=== PATIENT | male | born 1995 | race Caucasian/White ===

== ENCOUNTER 2017-08-26 08:01 | Emergency (ER) | payer OTHER ==
--- NOTE | 2017-08-26 08:23 | ER ---
Nurse's Notes [facility] Name: Owen Mccartney III Age: 21 yrs Sex: Male : 1995 Arrival Date: 08/26/2017 Time: 08:06 Bed 20 Private MD: Vel Ying M Diagnosis: Insect bite (nonvenomous) of left wrist;Cellulitis of left upper limb Presentation: 08/26 08:09 Presenting complaint: Patient states: yesterday, was doing yard work, and i felt might hj be a wasp has bitten me on my L hand, it is getting worse, took ibuprofen, last dose last night around 1030; reports numbness and tingling on the affected side; reports itchiness;. Transition of care: patient was not received from another setting of care. Onset of symptoms was August 26, 2017. Risk Assessment: Do you want to hurt yourself or someone else? Patient reports no desire to harm self or others. Initial Sepsis Screen: Does the patient meet any 2 criteria? Yes Does the patient have a suspected source of infection? Yes: Skin breakdown/wound. Care prior to arrival: None. 08:09 Method Of Arrival: Ambulatory 08:09 Acuity: ELIZABETH 4 hj Triage Assessment: 08:12 Bite description: bite sustained to left hand by a wasp, animal information: vaccination(s) is not applicable. General: Appears in no apparent distress. uncomfortable, Behavior is calm, cooperative, appropriate for age. Pain: Complains of pain in left hand Pain currently is 2 out of 10 on a pain scale. Historical: - Allergies: 08:11 No Known Allergies; hj - Home Meds: 08:11 None [Active]; hj - PMHx: 08:11 None; hj - PSHx: 08:11 None; hj - Immunization history:: Adult Immunizations not up to date. - Social history:: Smoking status: Patient uses tobacco products, smokes one-half pack cigarettes per day, Patient uses alcohol, occasionally. - Ebola Screening: : Patient negative for fever greater than or equal to 101.5 degrees Fahrenheit, and additional compatible Ebola Virus Disease symptoms Patient denies exposure to infectious person Patient denies travel to an Ebola-affected area in the 21 days before illness onset. Screenin:13 Abuse screen: Denies threats or abuse. Denies injuries from another. Nutritional hj screening: No deficits noted. Tuberculosis screening: No symptoms or risk factors identified. Fall Risk None identified. Assessment: 08:13 Derm: Skin is intact, Skin is red. hj 08:25 General: Appears comfortable, Behavior is calm, cooperative. Pain: Complains of pain in aa5 left hand Pain does not radiate. Pain currently is 2 out of 10 on a pain scale. Quality of pain is described as pinching, Is continuous. Neuro: Level of Consciousness is awake, alert, obeys commands, Oriented to person, place, time, situation. Cardiovascular: No deficits noted. Respiratory: Airway is patent Respiratory effort is even, unlabored, Respiratory pattern is regular, symmetrical. GI: No signs and/or symptoms were reported involving the gastrointestinal system. : No signs and/or symptoms were reported regarding the genitourinary system. EENT: No signs and/or symptoms were reported regarding the EENT system. Derm: Skin is dry, Skin is red, Skin temperature is warm. Musculoskeletal: Range of motion: intact in all extremities, Swelling present in left hand. 08:35 Reassessment: pt states" i have a little bit of trouble swallowing pills but I will tw2 try", Zofran given first and a few crackers and water. Vital Signs: 08:13 BP 125 / 83; Pulse 63; Resp 18; Temp 97.6(O); Pulse Ox 100% on R/A; Weight 95.25 kg; hj Height 5 ft. 9 in. (175.26 cm); Pain 2/10; 08:13 Body Mass Index 31.01 (95.25 kg, 175.26 cm) ED Course: 08:06 Patient arrived in ED. rg4 08:06 Vel Ying MD is Private Physician. rg4 08:11 Triage completed. hj 08:12 Kathy Chaidez FNP-C [facility]. snw 08:12 Dav Chandler MD is Attending Physician. snw 08:13 Arm band placed on right wrist. hj 08:13 Patient has correct armband on for positive identification. Bed in low position. Call light in reach. Side rails up X 1. 08:17 Jessica Shoemaker, HANK is Primary Nurse. aa5 08:55 No provider procedures requiring assistance completed. aa5 08:55 Patient did not have IV access during this emergency room visit. 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 Exp: tw10/30/2019. Lot #: [id number]. } Route: IM; Site: left deltoid; 08:55 Follow up: Response: No adverse reaction aa5 08:34 Drug: Zofran 4 mg Route: PO; 08:55 Follow up: Response: No adverse reaction aa5 08:40 Drug: Doxycycline 100 mg Route: PO; aa5 08:55 Follow up: Response: No adverse reaction aa5 08:40 Drug: predniSONE 20 mg Route: PO; aa5 08:55 Follow up: Response: No adverse reaction aa5 08:40 Drug: ZyrTEC - Cetirizine 10 mg Route: PO; aa5 08:55 Follow up: Response: No adverse reaction aa5 08:40 Drug: Pepcid 20 mg Route: PO; aa5 08:55 Follow up: Response: No adverse reaction aa5 Outcome: 08:23 Discharge ordered by MD. jamil 08:55 Discharged to home ambulatory. aa5 08:55 Condition: stable 08:55 Discharge instructions given to patient, Instructed on discharge instructions, follow up and referral plans. medication usage, Demonstrated understanding of instructions, follow-up care, medications. 08:57 Patient left the ED. aa5 Signatures: Kathy Chaidez, DEMOLITION CRANE OPERATOR-C DEMOLITION CRANE OPERATOR-Csnw Jessica Shoemaker RN RN aa5 Raymundo Stanley RN RN Radha Otero RN RN 2 Brenna Carrillo 4 Corrections: (The following items were deleted from the chart) 08:15 08:13 Pulse 63bpm; Resp 18bpm; Pulse Ox 100% RA; Temp 97.6F Oral; 95.25 kg; Height 5 hj ft. 9 in.; BMI: 31.0; Pain 2/10; hj 09:15 09:04 Patient left the ED. aa5 aa5
--- NOTE | 2017-08-26 08:23 | EDPHYS ---
Physician Documentation [facility] Name: Owen Mccartney III Age: 21 yrs Sex: Male : 1995 Arrival Date: 08/26/2017 Time: 08:06 Bed 20 Private MD: Vel Ying M ED Physician Dav Chandler HPI: 08/26 08:49 This 21 yrs old Male presents to ER via Ambulatory with complaints of Insect snw Bite. 08:49 The patient or guardian reports pain, swelling, tenderness. The complaints affect the snw left wrist diffusely. Context: The problem was sustained outdoors, resulted from insect sting. Onset: The symptoms/episode began/occurred suddenly, 1 day(s) ago, and became persistent. Associated signs and symptoms: The patient has no apparent associated signs or symptoms. Compartment Syndrome negative for numbness, tingling. The patient has not experienced similar symptoms in the past. The patient has not recently seen a physician. Historical: - Allergies: 08:11 No Known Allergies; hj - Home Meds: 08:11 None [Active]; hj - PMHx: 08:11 None; hj - PSHx: 08:11 None; hj - Immunization history:: Adult Immunizations not up to date. - Social history:: Smoking status: Patient uses tobacco products, smokes one-half pack cigarettes per day, Patient uses alcohol, occasionally. - Ebola Screening: : Patient negative for fever greater than or equal to 101.5 degrees Fahrenheit, and additional compatible Ebola Virus Disease symptoms Patient denies exposure to infectious person Patient denies travel to an Ebola-affected area in the 21 days before illness onset. ROS: 08:47 Constitutional: Negative for fever, chills, and weight loss, Eyes: Negative for injury, snw pain, redness, and discharge, ENT: Negative for injury, pain, and discharge, Neck: Negative for injury, pain, and swelling, Cardiovascular: Negative for chest pain, palpitations, and edema, Respiratory: Negative for shortness of breath, cough, wheezing, and pleuritic chest pain, Abdomen/GI: Negative for abdominal pain, nausea, vomiting, diarrhea, and constipation, Back: Negative for injury and pain, : Negative for injury, bleeding, discharge, and swelling, MS/Extremity: Negative for injury and deformity, Neuro: Negative for headache, weakness, numbness, tingling, and seizure. 08:47 Skin: Positive for wasp sting yesterday to left medial wrist, today area red, hot, swollen, increasingly painful. Exam: 08:46 Constitutional: This is a well developed, well nourished patient who is awake, alert, snw and in no acute distress. Head/Face: Normocephalic, atraumatic. Eyes: Pupils equal round and reactive to light, extra-ocular motions intact. Lids and lashes normal. Conjunctiva and sclera are non-icteric and not injected. Cornea within normal limits. Periorbital areas with no swelling, redness, or edema. ENT: Nares patent. No nasal discharge, no septal abnormalities noted. Tympanic membranes are normal and external auditory canals are clear. Oropharynx with no redness, swelling, or masses, exudates, or evidence of obstruction, uvula midline. Mucous membranes moist. Neck: Trachea midline, no thyromegaly or masses palpated, and no cervical lymphadenopathy. Supple, full range of motion without nuchal rigidity, or vertebral point tenderness. No Meningismus. Chest/axilla: Normal chest wall appearance and motion. Nontender with no deformity. No lesions are appreciated. Cardiovascular: Regular rate and rhythm with a normal S1 and S2. No gallops, murmurs, or rubs. Normal PMI, no JVD. No pulse deficits. Respiratory: Lungs have equal breath sounds bilaterally, clear to auscultation and percussion. No rales, rhonchi or wheezes noted. No increased work of breathing, no retractions or nasal flaring. Abdomen/GI: Soft, non-tender, with normal bowel sounds. No distension or tympany. No guarding or rebound. No evidence of tenderness throughout. Back: No spinal tenderness. No costovertebral tenderness. Full range of motion. MS/ Extremity: Pulses equal, no cyanosis. Neurovascular intact. Full, normal range of motion. Neuro: Awake and alert, GCS 15, oriented to person, place, time, and situation. Cranial nerves II-XII grossly intact. Motor strength 5/5 in all extremities. Sensory grossly intact. Cerebellar exam normal. Normal gait. Psych: Awake, alert, with orientation to person, place and time. Behavior, mood, and affect are within normal limits. 08:46 Skin: Appearance: normal except for affected area, cellulitis, that is moderate, that is severe, on the medial aspect of left wrist, dorsum of left hand and dorsal aspect of left wrist, warm, edematous, mild erythema. Vital Signs: 08:13 BP 125 / 83; Pulse 63; Resp 18; Temp 97.6(O); Pulse Ox 100% on R/A; Weight 95.25 kg; hj Height 5 ft. 9 in. (175.26 cm); Pain 2/10; 08:13 Body Mass Index 31.01 (95.25 kg, 175.26 cm) hj MDM: 08:17 Patient medically screened. snw 08:48 Data reviewed: vital signs, nurses notes. Data interpreted: Pulse oximetry: on room air snw is 100 %. Interpretation: normal. Counseling: I had a detailed discussion with the patient and/or guardian regarding: the historical points, exam findings, and any diagnostic results supporting the discharge/admit diagnosis, the presence of at least one elevated blood pressure reading (>120/80) during this emergency department visit, the need for outpatient follow up, for definitive care, to return to the emergency department if symptoms worsen or persist or if there are any questions or concerns that arise at home. Special discussion: I have referred the patient to see his PCP for further evaluation of high blood pressure. I discussed in detail with the patient the higher chance of wound infection based on his presenting history. Based on the history and exam findings, there is no indication for further emergent testing or inpatient evaluation. I discussed with the patient/guardian the need to see the primary care provider for further evaluation of the symptoms. Medical screen evaluation completed. [facility] emergency medical condition absent. 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 Exp: tw2 10/30/2019. Lot #: [id number]. } Route: IM; Site: left deltoid; 08:55 Follow up: Response: No adverse reaction aa5 08:34 Drug: Zofran 4 mg Route: PO; 08:55 Follow up: Response: No adverse reaction aa5 08:40 Drug: Doxycycline 100 mg Route: PO; 08:55 Follow up: Response: No adverse reaction aa5 08:40 Drug: predniSONE 20 mg Route: PO; 08:55 Follow up: Response: No adverse reaction aa5 08:40 Drug: ZyrTEC - Cetirizine 10 mg Route: PO; aa5 08:55 Follow up: Response: No adverse reaction aa5 08:40 Drug: Pepcid 20 mg Route: PO; aa5 08:55 Follow up: Response: No adverse reaction aa5 Disposition: 08/26/17 08:23 Discharged to Home. Impression: Insect bite (nonvenomous) of left wrist, Cellulitis of left upper limb. - Condition is Stable. - Discharge Instructions: Insect Bite, Cellulitis, VIS, Tetanus, Diphtheria (Td) - CDC, Cryotherapy, Heat Therapy. - Prescriptions for Zyrtec 10 mg Oral Tablet - take 1 tablet by ORAL route once daily As needed; 20 tablet. Doxycycline Hyclate 100 mg Oral Tablet - take 1 tablet by ORAL route every 12 hours; 20 tablet. Prednisone 20 mg Oral Tablet - take 1 tablet by ORAL route 2 times per day for 5 days; 10 tablet. Pepcid 20 mg Oral Tablet - take 1 tablet by ORAL route once daily; 20 tablet. - Work release form, Medication Reconciliation Form, Thank You Letter, Antibiotic Education, Prescription Opioid Use form. - Follow up: Private Physician; When: 2 - 3 days; Reason: Recheck today's complaints, Continuance of care, Re-evaluation by your physician. Follow up: Emergency Department; When: As needed; Reason: Worsening of condition. Addendum: 08/28/2017 06:18 Co-signature as Attending Physician, Dav Chandler MD. g s Signatures: Kathy Chaidez, MAGNETIC TAPE WINDER-C MAGNETIC TAPE WINDER-Csnw Jessica Shoemaker RN RN aa5 Raymundo Stanley RN RN Radha Otero RN RN tw2 Dav Chandler MD MD Corrections: (The following items were deleted from the chart) 08/26 09:04 08:23 08/26/2017 08:23 Discharged to Home. Impression: Insect bite (nonvenomous) of aa5 left wrist; Cellulitis of left upper limb. Condition is Stable. Forms are Medication Reconciliation Form, Thank You Letter, Antibiotic Education, Prescription Opioid Use. Follow up: Private Physician; When: 2 - 3 days; Reason: Recheck today's complaints, Continuance of care, Re-evaluation by your physician. Follow up: Emergency Department; When: As needed; Reason: Worsening of condition. snw
[2017-08-26] MEDS ORDERED: CETIRIZINE HCL 5 MG TABLET ONE (08:30)
[2017-08-26] MEDS ORDERED: ONDANSETRON 4 MG (ODT) TAB ONE (08:31)
[2017-08-26] MEDS ORDERED: TETANUS & DIPHTHERIA TOX,ADULT 0.5 ML VIAL ONE (08:31)
[2017-08-26] MEDS ORDERED: predniSONE 20 MG TAB ONE (08:31)
[2017-08-26] MEDS ORDERED: FAMOTIDINE 20 MG TAB ONE (08:31)
[2017-08-26] MEDS ORDERED: DOXYCYCLINE 100 MG CAP PO ONE (08:31)
== END 2017-08-26 09:04 | disposition home or self-care (01) ==
LOC: ER 08:01
DX: L03.114 Cellulitis of left upper limb (principal); F17.210 Nicotine dependence, cigarettes, uncomplicated
CPT/HCPCS: 90714; 99283; J7512

== ENCOUNTER 2018-01-04 07:35 | Emergency (ER) | payer OTHER ==
--- NOTE | 2018-01-04 08:02 | EDPHYS ---
Physician Documentation [facility] Name: Owen Mccartney III Age: 22 yrs Sex: Male : 1995 Arrival Date: 01/04/2018 Time: 07:40 Bed 11 Private MD: None, None ED Physician Jimi Allen HPI: 01/04 08:06 This 22 yrs old Male presents to ER via Ambulatory with complaints of Jaw kb Pain. 08:06 The patient presents with pain, redness, swelling. The problem is located in the lower kb left third molar (#17). Onset: The symptoms/episode began/occurred 2 day(s) ago. Duration: The symptoms are continuous. Modifying factors: The symptoms are alleviated by nothing, the symptoms are aggravated by chewing. Associated signs and symptoms: Pertinent positives: pain, redness in area, swelling. Severity of symptoms: At their worst the symptoms were moderate, in the emergency department the symptoms are unchanged. The patient has not experienced similar symptoms in the past. The patient has not recently seen a physician. Historical: - Allergies: 07:56 No Known Allergies; iw - Home Meds: 07:56 None [Active]; iw - PMHx: 07:56 None; iw - PSHx: 07:56 None; iw - Immunization history:: Adult Immunizations not up to date. - Social history:: Smoking status: Patient uses tobacco products, denies chronic smoking, but will smoke occasionally, chewing tobacco. - Ebola Screening: : Patient negative for fever greater than or equal to 101.5 degrees Fahrenheit, and additional compatible Ebola Virus Disease symptoms Patient denies exposure to infectious person Patient denies travel to an Ebola-affected area in the 21 days before illness onset No symptoms or risks identified at this time. ROS: 08:04 Constitutional: Negative for fever, chills, and weight loss, Cardiovascular: Negative kb for chest pain, palpitations, and edema, Respiratory: Negative for shortness of breath, cough, wheezing, and pleuritic chest pain, Abdomen/GI: Negative for abdominal pain, nausea, vomiting, diarrhea, and constipation, MS/Extremity: Negative for injury and deformity, Skin: Negative for injury, rash, and discoloration, Neuro: Negative for headache, weakness, numbness, tingling, and seizure. 08:04 ENT: Positive for dental pain. Exam: 08:04 Constitutional: This is a well developed, well nourished patient who is awake, alert, kb and in no acute distress. Head/Face: Normocephalic, atraumatic. Chest/axilla: Normal chest wall appearance and motion. Nontender with no deformity. No lesions are appreciated. Cardiovascular: Regular rate and rhythm with a normal S1 and S2. No gallops, murmurs, or rubs. Normal PMI, no JVD. No pulse deficits. Respiratory: Lungs have equal breath sounds bilaterally, clear to auscultation and percussion. No rales, rhonchi or wheezes noted. No increased work of breathing, no retractions or nasal flaring. Abdomen/GI: Soft, non-tender, with normal bowel sounds. No distension or tympany. No guarding or rebound. No evidence of tenderness throughout. Skin: Warm, dry with normal turgor. Normal color with no rashes, no lesions, and no evidence of cellulitis. MS/ Extremity: Pulses equal, no cyanosis. Neurovascular intact. Full, normal range of motion. Neuro: Awake and alert, GCS 15, oriented to person, place, time, and situation. Cranial nerves II-XII grossly intact. Motor strength 5/5 in all extremities. Sensory grossly intact. Cerebellar exam normal. Normal gait. 08:04 ENT: Dental exam: cellulitis, that is mild, specifically in the lower left third molar (#17), gum swelling, that is moderate, specifically in the lower left third molar (#17), pain, that is moderate, specifically in the lower left third molar (#17). Vital Signs: 07:56 BP 135 / 81; Pulse 47; Resp 16; Temp 98.3(O); Pulse Ox 99% on R/A; Weight 97.52 kg; iw Height 5 ft. 9 in. (175.26 cm); Pain 7/10; 07:56 Body Mass Index 31.75 (97.52 kg, 175.26 cm) iw MDM: 08:01 Patient medically screened. kb 08:04 Data reviewed: vital signs, nurses notes. Data interpreted: Pulse oximetry: on room air kb is 99 %. Interpretation: normal. Counseling: I had a detailed discussion with the patient and/or guardian regarding: the historical points, exam findings, and any diagnostic results supporting the discharge/admit diagnosis, the need for outpatient follow up, a dentist, to return to the emergency department if symptoms worsen or persist or if there are any questions or concerns that arise at home. Administered Medications: No medications were administered Disposition: 01/04/18 08:01 Discharged to Home. Impression: Periapical abscess without sinus. - Condition is Stable. - Discharge Instructions: Dental Pain, [id number], Dental Abscess, [id number]. - Prescriptions for Augmentin 875- 125 mg Oral Tablet - take 1 tablet by ORAL route every 12 hours for 7 days; 14 tablet. - Work release form, Medication Reconciliation Form, Thank You Letter, Antibiotic Education, Prescription Opioid Use form. - Follow up: Emergency Department; When: As needed; Reason: Worsening of condition. Follow up: Private Physician; When: 2 - 3 days; Reason: Recheck today's complaints, Continuance of care, Re-evaluation by your physician. Addendum: 01/05/2018 08:16 Co-signature as Attending Physician, Jimi Allen MD I agree with the assessment and c casper plan of care. Signatures: Negra Banks, DENTAL INSTRUCTOR-C DENTAL INSTRUCTOR-Ckb Jimi Allen MD MD cha Williams, Irene, RN RN iw Corrections: (The following items were deleted from the chart) 01/04 08:10 08:01 01/04/2018 08:01 Discharged to Home. Impression: Periapical abscess without iw sinus. Condition is Stable. Forms are Medication Reconciliation Form, Thank You Letter, Antibiotic Education, Prescription Opioid Use. Follow up: Emergency Department; When: As needed; Reason: Worsening of condition. Follow up: Private Physician; When: 2 - 3 days; Reason: Recheck today's complaints, Continuance of care, Re-evaluation by your physician. kb
--- NOTE | 2018-01-04 08:02 | ER ---
Nurse's Notes [facility] Name: Owen Mccartney III Age: 22 yrs Sex: Male : 1995 Arrival Date: 01/04/2018 Time: 07:40 Bed 11 Private MD: None, None Diagnosis: Periapical abscess without sinus Presentation: 01/04 07:56 Presenting complaint: Patient states: left lower jaw pain X 2days. Transition of care: iw patient was not received from another setting of care. Onset of symptoms was January 02, 2018. Risk Assessment: Do you want to hurt yourself or someone else? Patient reports no desire to harm self or others. Initial Sepsis Screen: Does the patient meet any 2 criteria? No. Patient's initial sepsis screen is negative. Does the patient have a suspected source of infection? No. Patient's initial sepsis screen is negative. Care prior to arrival: None. 07:56 Method Of Arrival: Ambulatory iw 07:56 Acuity: ELIZABETH 4 iw Historical: - Allergies: 07:56 No Known Allergies; iw - Home Meds: 07:56 None [Active]; iw - PMHx: 07:56 None; iw - PSHx: 07:56 None; iw - Immunization history:: Adult Immunizations not up to date. - Social history:: Smoking status: Patient uses tobacco products, denies chronic smoking, but will smoke occasionally, chewing tobacco. - Ebola Screening: : Patient negative for fever greater than or equal to 101.5 degrees Fahrenheit, and additional compatible Ebola Virus Disease symptoms Patient denies exposure to infectious person Patient denies travel to an Ebola-affected area in the 21 days before illness onset No symptoms or risks identified at this time. Screenin:57 Abuse screen: Denies threats or abuse. Denies injuries from another. Nutritional iw screening: No deficits noted. Tuberculosis screening: No symptoms or risk factors identified. Fall Risk None identified. Assessment: 07:57 General: Appears in no apparent distress. comfortable, Behavior is calm, cooperative. iw Pain: Complains of pain in left jaw. Neuro: Level of Consciousness is awake, alert, obeys commands, Oriented to person, place, time, situation, Moves all extremities. Full function. Cardiovascular: Patient's skin is warm and dry. Respiratory: Respiratory effort is even, unlabored, Respiratory pattern is regular. GI: No signs and/or symptoms were reported involving the gastrointestinal system. Derm: Skin is intact, is healthy with good turgor. Musculoskeletal: Range of motion: intact in all extremities. Vital Signs: 07:56 BP 135 / 81; Pulse 47; Resp 16; Temp 98.3(O); Pulse Ox 99% on R/A; Weight 97.52 kg; iw Height 5 ft. 9 in. (175.26 cm); Pain 7/10; 07:56 Body Mass Index 31.75 (97.52 kg, 175.26 cm) iw ED Course: 07:40 Patient arrived in ED. mr 07:40 None, None is Private Physician. mr 07:56 Triage completed. iw 07:56 Arm band placed on. iw 07:57 Patient has correct armband on for positive identification. iw 07:57 No provider procedures requiring assistance completed. Patient did not have IV access iw during this emergency room visit. 07:59 Adriana King, RN is Primary Nurse. iw 08:01 Negra Banks [facility]-C [facility]. kb 08:01 Jimi Allen MD is Attending Physician. kb Administered Medications: No medications were administered Outcome: 08:01 Discharge ordered by . kb 08:09 Discharged to home ambulatory. iw 08:09 Condition: good 08:09 Discharge instructions given to patient, Instructed on discharge instructions, follow up and referral plans. medication usage, Demonstrated understanding of instructions, follow-up care, medications, Prescriptions given X 1. 08:10 Patient left the ED. iw Signatures: Negra Banks FNP-C FNP-Codie MandujanoaKatelin mr Adriana King, RN RN iw
== END 2018-01-04 08:10 | disposition home or self-care (01) ==
LOC: SUPCPDRO 07:35 → ER 07:35
DX: K04.7 Periapical abscess without sinus (principal); F17.220 Nicotine dependence, chewing tobacco, uncomplicated
CPT/HCPCS: 99282

== ENCOUNTER 2021-03-18 21:43 | Emergency (ER) | payer OTHER, SELFPAY ==
--- OUTSIDE RECORDS SUMMARY | 2021-03-18 21:46 | XMS REPORT | Continuity of Care Document ---
:1995 Author Organization [facility] t Address [address] [place] [address] Care Team Providers Name Role Phone Deonna FIELDS, Nicolas Primary Care Physician Unavailable WINSTON GARCÍA Attending Clinician Unavailable Winston Martinez Attending Clinician Doctor Unassigned, Name Attending Clinician Unavailable Payers Payer Name Policy Type Policy Number Effective Date Expiration Date [facility] [id number] 2014 PPO 00:00:00 Problems This patient has no known problems. Allergies, Adverse Reactions, Alerts Allergy Allergy Status Severity Reaction(s) Onset Inactive Treating Comm ents Source Name Type Date Date Clinician NO KNOWN Drug Active Univers ALLERGIE Class ity of S [facility] Social History Social Habit Start Date Stop Date Quantity Comments Source Exposure to Yes [facility] SARS-CoV-2 (event) Medica l Branch Sex Assigned At [birth year] [facility] 00:00:00 00:00:00 Medical Branch Smoking Status Start Date Stop Date Source Unknown if ever smoked [facility] Medications Ordered Filled Start Stop Current Ordering Indication Dosage Frequency Signature Comments Components Source Medication Medication Date Date Medication? Clinician (SIG) Name Name No known No [facility] medications 03-05 ity of 21:50: [address] Vital Signs Vital Name Observation Time Observation Value Comments Source Systolic blood 2021-03-06 05:31:00 118 mm[Hg] Univer sity of pressure [facility] Diastolic blood 2021-03-06 05:31:00 76 mm[Hg] Unive rsity of [facility] Heart rate 2021-03-06 05:31:00 80 [facility] Respiratory rate 2021-03-06 05:31:00 18 /min [facility] Oxygen saturation in 2021-03-06 05:31:00 98 /min [facility] Arterial blood by [facility] Pulse oximetry [place] Body temperature 2021-03-06 03:48:00 37.44 Angelica [facility] Body height 2021-03-06 03:48:00 177.8 cm [facility] Body weight 2021-03-06 03:48:00 104.327 kg [facility] BMI 2021-03-06 03:48:00 33.00 kg/m2 [facility] Procedures Procedure Date / Time Performed Performing Clinician [facility] e NOTICE OF PRIVACY 2021-03-06 03:36:55 Doctor Unassigned, No Univ [facility] Name [facility] CONSENT/REFUSAL FOR 2021-03-06 03:36:35 Doctor Unassigned, No [facility] DIAGNOSIS AND Name [facility] Branch TREATMENT Encounters Start End Encounter Admission Attending Care Care Encounter Source Date/Time Date/Time Type Type Clinicians Facility Department ID 2021-03-05 2021-03-05 Emergency X Elvis GARCÍA [facility] ERT [id number] Univers 21:52:00 23:35:00 ity of [facility] 2021-03-05 2021-03-05 Emergency Elvis García [facility] [id number] Univers 21:52:00 23:35:00 Winston HARRISON [id number] i ty [facility] [id number] [facility] [id number] Medi jose 084 Branch 2021-03-05 2021-03-05 Orders Doctor MIMI [id number] Univers 00:00:00 00:00:00 Only Unassigned, GILDA [id number] ity of [place] [facility] [id number] [place] [phone] [place] [id number] Branch Results This patient has no known results.
--- NOTE | 2021-03-19 00:13 | ER ---
Nurse's Notes [facility] Name: Owen Mccartney III Age: 25 yrs Sex: Male : 1995 Arrival Date: 03/18/2021 Time: 21:46 Bed 13 Private MD: Diagnosis: Shortness of breath Presentation: 03/18 22:03 Chief complaint: Patient states: I recently had COVID - Pt reporting SOB and chest ld1 discomfort. Upon arrival SpO2 98%. Coronavirus screen: At this time, the client does not indicate any symptoms associated with coronavirus-19. Ebola Screen: No symptoms or risks identified at this time. Initial Sepsis Screen: Does the patient meet any 2 criteria? No. Patient's initial sepsis screen is negative. Does the patient have a suspected source of infection? No. Patient's initial sepsis screen is negative. Risk Assessment: Do you want to hurt yourself or someone else? Patient reports no desire to harm self or others. Onset of symptoms was March 18, 2021. 22:03 Method Of Arrival: Ambulatory ld1 22:03 Acuity: ELIZABETH 4 ld1 Triage Assessment: 22:04 General: Appears in no apparent distress. comfortable, Behavior is calm, cooperative, ld1 appropriate for age. Pain: Denies pain. Neuro: Level of Consciousness is awake, alert, obeys commands, Oriented to person, place, time, situation. Cardiovascular: Capillary refill < 3 seconds Patient's skin is warm and dry. Respiratory: Reports shortness of breath cough that is Airway is patent Respiratory effort is even, unlabored, Onset: The symptoms/episode began/occurred gradually, the patient has mild shortness of breath. GI: Abdomen is round non-distended. Historical: - Allergies: 22:04 No Known Allergies; ld1 - Home Meds: 22:04 None [Active]; ld1 - PMHx: 22:04 None; ld1 - PSHx: 22:04 None; ld1 - Immunization history:: Adult Immunizations up to date, Client reports having NOT received the Covid vaccine. - Social history:: Smoking status: Patient denies any tobacco usage or history of. Patient/guardian denies using alcohol. Screenin/07 00:25 Abuse screen: Denies threats or abuse. Nutritional screening: No deficits noted. mk Tuberculosis screening: No symptoms or risk factors identified. Fall Risk No fall in past 12 months (0 pts). No secondary diagnosis (0 pts). IV access (20 points). Ambulatory Aid- None/Bed Rest/Nurse Assist (0 pts). Gait- Normal/Bed Rest/Wheelchair (0 pts) Mental Status- Oriented to own ability (0 pts). Total Thorne Fall Scale indicates No Risk (0-24 pts). Assessment: 03/18 23:10 General: Appears in no apparent distress. Behavior is calm, cooperative. Pain: Denies mk pain. Neuro: Level of Consciousness is awake, alert, obeys commands, Oriented to person, place, time, situation, Tacking Stitch Remover are equal bilaterally Moves all extremities. Cardiovascular: Heart tones S1 S2 present Capillary refill < 3 seconds in bilateral fingers toes Clubbing of nail beds is absent JVD is absent Patient's skin is warm and dry. Pulses are 3+ in right radial artery, right dorsalis pedis artery, left radial artery and left dorsalis pedis artery Edema is absent. Rhythm is sinus rhythm. Respiratory: Reports cough that is non-productive, dry, since Friday Airway is patent Trachea midline Respiratory effort is even, unlabored, Respiratory pattern is regular, symmetrical, Breath sounds are clear. GI: Bowel sounds present X 4 quads. Abd is soft and non tender X 4 quads. : No signs and/or symptoms were reported regarding the genitourinary system. Derm: Skin is intact, is healthy with good turgor, Skin is dry, Skin is pink, warm \T\ dry. Skin temperature is warm. Musculoskeletal: Circulation, motion, and sensation intact. Capillary refill < 3 seconds, in bilateral fingers. toes. Range of motion: intact in all extremities. 03/19 00:10 Reassessment: No changes from previously documented assessment. Patient and/or family mk updated on plan of care and expected duration. Pain level reassessed. Patient is alert, oriented x 3, equal unlabored respirations, skin warm/dry/pink. Patient states feeling better. Vital Signs: 03/18 22:03 BP 139 / 73; Pulse 66; Resp 18; Temp 98.4(O); Pulse Ox 98% on R/A; Weight 104.33 kg; ld1 Height 5 ft. 9 in. (175.26 cm); Pain 0/10; 23:10 BP 119 / 85; Pulse 57; Resp 18; Pulse Ox 95% on R/A; mk 02 00:10 BP 120 / 78; Pulse 68; Resp 18; Temp 98.7(O); Pulse Ox 98% on R/A; mk 02 22:03 Body Mass Index 33.96 (104.33 kg, 175.26 cm) ld1 Gatito Coma Score: 03/18 23:10 Eye Response: spontaneous(4). Verbal Response: oriented(5). Motor Response: obeys mk commands(6). Total: 15. 03/19 00:10 Eye Response: spontaneous(4). Verbal Response: oriented(5). Motor Response: obeys ld1 commands(6). Total: 15. ED Course: 03/18 21:46 Patient arrived in ED. ja2 22:04 Triage completed. ld1 22:04 Arm band placed on right wrist. ld1 22:17 Jimi Becerra PA is PHCP. cp 22:17 Cheng Leyva MD is Attending Physician. cp 22:32 Marilynn Stovall, HANK is Primary Nurse. mk 22:59 XRAY Chest (1 view) In Process Unspecified. EDMS 23:10 lunchroom monitor on. Pulse ox on. NIBP on. mk 03/19 00:13 Akbar Ward MD is Referral Physician. cp 00:26 Patient has correct armband on for positive identification. Allergy band placed. Fall mk risk band placed. Bed in low position. Call light in reach. Side rails up X 1. 00:26 No provider procedures requiring assistance completed. Patient did not have IV access mk during this emergency room visit. Administered Medications: No medications were administered Outcome: 00:13 Discharge ordered by . cp 00:26 Discharged to home mk 00:26 Condition: stable 00:26 Discharge instructions given to patient. 00:26 Patient left the ED. Signatures: Dispatcher [employer] EDMS Jimi Becerra PA PA cp Ashley Vyas RN RN ld1 Aubrie Lang ja2 Marilynn Stovall RN RN lilliam Corrections: (The following items were deleted from the chart) 03/18 22:05 22:04 PSHx: Unable to Obtain; ld1 ld1 03/19 00:22 00:10 BP 120 / 78; Pulse 68bpm; Resp 18bpm; Pulse Ox 98% RA; ld1 mk
--- NOTE | 2021-03-19 00:13 | EDPHYS ---
Physician Documentation [facility] Name: Owen Mccartney III Age: 25 yrs Sex: Male : 1995 Arrival Date: 03/18/2021 Time: 21:46 Bed 13 Private MD: ED Physician Cheng Leyva HPI: 03/18 22:40 This 25 yrs old Male presents to ER via Ambulatory with complaints of Shortness Of cp Breath, Cough, Anxiety. 22:40 The patient has shortness of breath with light activity. Onset: The symptoms/episode cp began/occurred gradually. 22:40 Duration: The symptoms are intermittent. Patient reports testing positive for COVID-19 cp 2 weeks ago. Denies recent fevers. Reports being anxious and shortness of breath with exertion. Patient denies chest pain. Historical: - Allergies: 22:04 No Known Allergies; ld1 - Home Meds: 22:04 None [Active]; ld1 - PMHx: 22:04 None; ld1 - PSHx: 22:04 None; ld1 - Immunization history:: Adult Immunizations up to date, Client reports having NOT received the Covid vaccine. - Social history:: Smoking status: Patient denies any tobacco usage or history of. Patient/guardian denies using alcohol. ROS: 22:50 Constitutional: Negative for body aches, chills, fever, poor PO intake. cp 22:50 Eyes: Negative for injury, pain, redness, and discharge. cp 22:50 ENT: Negative for ear pain, sore throat, difficulty swallowing, difficulty handling secretions. 22:50 Cardiovascular: Negative for chest pain, edema, palpitations. 22:50 Respiratory: Positive for shortness of breath, on exertion. Negative for wheezing. 22:50 Abdomen/GI: Negative for abdominal pain, nausea, vomiting, and diarrhea. 22:50 Back: Negative for pain at rest, pain with movement. 22:50 Neuro: Negative for altered mental status, dizziness, headache, syncope, weakness. 22:50 All other systems are negative. Exam: 22:55 Constitutional: The patient appears in no acute distress, alert, awake, cp non-diaphoretic, non-toxic, well developed, well nourished. 22:55 Head/Face: Normocephalic, atraumatic. cp 22:55 Eyes: Periorbital structures: appear normal, Conjunctiva: normal, no exudate, no injection, Sclera: no appreciated abnormality, Lids and lashes: appear normal, bilaterally. 22:55 ENT: External ear(s): are unremarkable, Nose: is normal, Mouth: is normal, Posterior pharynx: Airway: no evidence of obstruction, patent, Tonsils: are normal in appearance, erythema, is not appreciated, exudate, is not appreciated. 22:55 Neck: ROM/movement: is normal, is supple, without pain, no range of motions limitations. 22:55 Chest/axilla: Inspection: normal, Palpation: is normal, no crepitus, no tenderness. 22:55 Cardiovascular: Rate: normal, Rhythm: regular, Heart sounds: murmur, not appreciated, Edema: is not appreciated, JVD: is not appreciated. 22:55 Respiratory: the patient does not display signs of respiratory distress, Respirations: normal, no use of accessory muscles, no retractions, labored breathing, is not present, Breath sounds: are clear throughout, decreased breath sounds, are not appreciated, stridor, is not appreciated, wheezing: is not appreciated. 22:55 Abdomen/GI: Exam negative for discomfort, distension, guarding, Inspection: abdomen appears normal. 22:55 Back: pain, is absent, ROM is normal. Vital Signs: 22:03 BP 139 / 73; Pulse 66; Resp 18; Temp 98.4(O); Pulse Ox 98% on R/A; Weight 104.33 kg; ld1 Height 5 ft. 9 in. (175.26 cm); Pain 0/10; 23:10 BP 119 / 85; Pulse 57; Resp 18; Pulse Ox 95% on R/A; mk 03/19 00:10 BP 120 / 78; Pulse 68; Resp 18; Temp 98.7(O); Pulse Ox 98% on R/A; mk 03/18 22:03 Body Mass Index 33.96 (104.33 kg, 175.26 cm) ld1 Gatito Coma Score: 03/18 23:10 Eye Response: spontaneous(4). Verbal Response: oriented(5). Motor Response: obeys mk commands(6). Total: 15. 03/19 00:10 Eye Response: spontaneous(4). Verbal Response: oriented(5). Motor Response: obeys ld1 commands(6). Total: 15. MDM: 03/18 22:18 Patient medically screened. cp 23:00 Differential diagnosis: asthma, Bronchitis pneumonia, Pneumothorax pulmonary edema, cp Pulmonary Embolism. 23:38 Test interpretation: by ED physician or midlevel provider: chest xray negative for cp infiltrates. 03/19 00:12 Data reviewed: vital signs, nurses notes, radiologic studies, plain films. 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 ED course: VSS. Patient appears non-toxic and no signs of respiratory distress. Will discharge to home for continued monitoring. 03/18 22:35 Order name: XRAY Chest (1 view) cp Administered Medications: No medications were administered Disposition: 01:31 Co-signature as Attending Physician, Cheng Leyva MD. [email or web address] Disposition Summary: 03/19/21 00:13 Discharge Ordered Location: Home cp Problem: new cp Symptoms: are unchanged cp Condition: Stable cp Diagnosis - Shortness of breath cp Followup: cp - With: Akbar Ward MD - When: 2 - 3 days - Reason: Worsening of condition Discharge Instructions: - Discharge Summary Sheet cp - Shortness of Breath, Adult cp - Things to Know about the COVID-19 Pandemic - CDC cp Forms: - Medication Reconciliation Form cp - Thank You Letter cp - Antibiotic Education cp - Prescription Opioid Use cp Prescriptions: - albuterol sulfate 90 mcg/actuation Inhalation HFA aerosol inhaler - inhale 1 puff by INHALATION route every 4-6 hours; 1 Inhaler; Refills: 0, cp Product Selection Permitted Signatures: Dispatcher [employer] EDMS Jimi Becerra PA PA cp Holmes, Maurice, MD MD 7 Ashley Vyas RN RN ld1 Corrections: (The following items were deleted from the chart) 03/18 22:05 22:04 PSHx: Unable to Obtain; ld1 ld1
[2021-03-19 02:49] VITALS: BP 120/78; TEMP 98.7; O2SAT 98
--- NOTE | 2021-03-19 08:18 | RAD REPORT ---
EXAM DESCRIPTION: RAD - Chest Single View - 03/18/2021 10:59 pm CLINICAL HISTORY: COUGH Chest pain. COMPARISON: No comparisons FINDINGS: Portable technique limits examination quality. The lungs are grossly clear. The heart is normal in size. No displaced fractures. IMPRESSION: No acute intrathoracic process suspected.
== END 2021-03-19 00:26 | disposition home or self-care (01) ==
LOC: ER 21:43
DX: R06.02 Shortness of breath (principal)
CPT/HCPCS: 71045; 99284